=== PATIENT | male | born 1940 | race Caucasian/White ===

== ENCOUNTER 2017-01-01 07:55 | Day surgery (SDC) | payer MEDICARE, OTHER ==
--- NOTE | ~2017-01-01 | EGD ---
EGD REPORT [facility] [address] [place] [address] NAME: JL ABBOTT : 44 STATUS : REG [facility]#: [id number] AGE: 76 ADM/REG DATE : 01/01/17 MR#: [id number] REPORT SERV DATE: 01/01/17 DICTATED BY: JL SEPULVEDA DATE: 01/01/17 REPORT STATUS : Draft [facility] DATE: 01/01/17 [facility] Center Patient Name: Jl Abbott Date of : 1940 Attending MD: JL SEPULVEDA MD Procedure Date No Time: 01/01/2017 Procedure: Colonoscopy Indications: Screening for colorectal malignant neoplasm Referring MD: GARTH COOPER Medicines: Monitored Anesthesia Care Complications: No immediate complications. Procedure: Pre-Anesthesia Assessment: - ASA Grade Assessment: III - A patient with severe systemic disease. After I obtained informed consent, the scope was passed under direct vision. Throughout the procedure, the patient's blood pressure, pulse, and oxygen saturations were monitored continuously. The CF [id number] was introduced through the anus and advanced to the cecum, identified by appendiceal orifice and ileocecal valve. The colonoscopy was performed without difficulty. The patient tolerated the procedure well. The quality of the bowel preparation was adequate. Findings: The digital rectal exam was normal. Pertinent negatives include no palpable rectal lesions. A few diverticula were found in the sigmoid colon. Two sessile polyps were found in the cecum. The polyps were 4 to 6 mm in size. These polyps were removed with a cold biopsy forceps. Resection and retrieval were complete. A sessile polyp was found in the descending colon. The polyp was 7 mm in size. The polyp was removed with a cold snare. Resection and retrieval were complete. Hemorrhoids were found during retroflexion and were mild. Impression: - Diverticulosis in the sigmoid colon. - Two 4 to 6 mm polyps in the cecum. Resected and retrieved. - One 7 mm polyp in the descending colon. Resected and retrieved. - Hemorrhoids. Recommendation: - Patient has a contact number available for emergencies. The signs and symptoms of potential delayed EGD REPORT [address] [place]. [address] NAME: JL ABBOTT CASSIDY : 44 STATUS : REG [facility] PAT#: [id number] AGE: 76 ADM/REG DATE : 01/01/17 MR#: [id number] REPORT SERV DATE: 01/01/17 DICTATED BY: JL SEPULVEDA DATE: 01/01/17 REPORT STATUS : Draft TRANSCRIBED BY: [employer] DATE: 01/01/17 complications were discussed with the patient. Return to normal activities tomorrow. Written discharge instructions were provided to the patient. - Regular diet. - Continue present medications. - Await pathology results. - Repeat colonoscopy for surveillance based on pathology results. - Return to GI clinic PRN. Procedure Code(s): --- Professional --- 48381, Colonoscopy, flexible, proximal to splenic flexure; with removal of tumor(s), polyp(s), or other lesion(s) by snare technique 82326, 59, Colonoscopy, flexible, proximal to splenic flexure; with biopsy, single or multiple Diagnosis Code(s): --- Professional --- K64.9, Unspecified hemorrhoids K57.30, Diverticulosis of large intestine without perforation or abscess without bleeding D12.4, Benign neoplasm of descending colon D12.0, Benign neoplasm of cecum Z12.11, Encounter for screening for malignant neoplasm of colon CPT copyright 2013 [employer]. All rights reserved. The codes documented in this report are preliminary and upon filter bed placer review may be revised to meet current compliance requirements. JL SEPULVEDA MD 01/01/2017 10:24 AM This report has been signed electronically. Number of Addenda: 0 Note Initiated On: 01/01/2017 9:38 AM Scope Withdrawal Time 0 hours 14 minutes 15 seconds [address] [place] [address]
--- NOTE | ~2017-01-01 | EGD ---
EGD REPORT [facility] [address] [address] NAME: JL ABBOTT : 44 STATUS : REG [facility]#: [id number] AGE: 76 ADM/REG DATE : 01/01/17 MR#: [id number] REPORT SERV DATE: 01/01/17 DICTATED BY: JL SEPULVEDA DATE: 01/01/17 REPORT STATUS : Draft [facility]: [facility] DATE: 01/01/17 Endoscopy Center Patient Name: Jl Abbott Date of : 1940 Attending MD: JL SEPULVEDA MD Procedure Date No Time: 01/01/2017 Procedure: Upper GI endoscopy Indications: Epigastric abdominal pain Referring MD: GARTH COOPER Medicines: Monitored Anesthesia Care Complications: No immediate complications. Procedure: Pre-Anesthesia Assessment: - ASA Grade Assessment: III - A patient with severe systemic disease. After obtaining informed consent, the endoscope was passed under direct vision. Throughout the procedure, the patient's blood pressure, pulse, and oxygen saturations were monitored continuously. The GIF [id number] was introduced through the mouth, and advanced to the second part of duodenum. The upper GI endoscopy was accomplished without difficulty. The patient tolerated the procedure well. Findings: The examined esophagus was normal. Patchy mildly erythematous mucosa without bleeding was found in the gastric antrum. Biopsies were taken with a cold forceps for histology. The cardia and gastric fundus were normal on retroflexion. Few non-bleeding superficial duodenal ulcers with no stigmata of bleeding were found in the duodenal bulb and in the second part of the duodenum. The largest lesion was 10 mm in largest dimension. Biopsies were taken with a cold forceps for histology. Impression: - Normal esophagus. - Erythematous mucosa in the antrum. Biopsied. - Multiple duodenal ulcers with clean base. Biopsied. Recommendation: - Patient has a contact number available for emergencies. The signs and symptoms of potential delayed complications were discussed with the patient. Return to normal activities tomorrow. Written discharge instructions were provided to the patient. - Regular diet. - Continue present medications. - Use Protonix (pantoprazole) 40 mg PO daily. EGD REPORT [address] [address] NAME: JL ABBOTT CASSIDY : 44 STATUS : REG [facility] PAT#: [id number] AGE: 76 ADM/REG DATE : 01/01/17 MR#: [id number] REPORT SERV DATE: 01/01/17 DICTATED BY: JL SEPULVEDA DATE: 01/01/17 REPORT STATUS : Draft TRANSCRIBED BY: [employer] DATE: 01/01/17 Procedure Code(s): --- Professional --- 32868, Esophagogastroduodenoscopy, flexible, transoral; with biopsy, single or multiple Diagnosis Code(s): --- Professional --- K31.9, Disease of stomach and duodenum, unspecified K26.9, Duodenal ulcer, unspecified as acute or chronic, without hemorrhage or perforation R10.13, Epigastric pain CPT copyright 2013 [employer]. All rights reserved. The codes documented in this report are preliminary and upon asphalt paving supervisor review may be revised to meet current compliance requirements. JL SEPULVEDA MD 01/01/2017 10:02 AM This report has been signed electronically. Number of Addenda: 0 Note Initiated On: 01/01/2017 9:43 AM Scope Withdrawal Time 0 hours 0 minutes 0 seconds [address] [place] [address]
[~2017-01-01 07:55] MED LIST: AMARYL1 MG PO; ASA5GR PO; BUSPAR30 MG PO; COZ50 PO; FLONASE NAS; HYTRIN10 MG PO; KLONO1 PO; MONOPRIL HCT PO; PAXIL40 MG PO; PRAVAC PO; REOCYTE PLUS PO; SYMBICORT 80/4.1 INH INH; TRAZ50 PO
== END 2017-01-01 23:59 | disposition home or self-care (01) ==
LOC: DMU 07:55
PROVIDERS: Internal Medicine Gastroenterology
PROC: 0DB68ZX Excision of Stomach, Via Natural or Artificial Opening Endoscopic, Diagnostic (ICD-10-PCS; 2017-01-01)
PROC: 0DBH8ZX Excision of Cecum, Via Natural or Artificial Opening Endoscopic, Diagnostic (ICD-10-PCS; principal; 2017-01-01 09:30)
PROC: 0DBM8ZX Excision of Descending Colon, Via Natural or Artificial Opening Endoscopic, Diagnostic (ICD-10-PCS; 2017-01-01 09:30)
PROC: 0DB98ZX Excision of Duodenum, Via Natural or Artificial Opening Endoscopic, Diagnostic (ICD-10-PCS; 2017-01-01 09:30)
DX: Z12.11 Encounter for screening for malignant neoplasm of colon (principal); D12.0 Benign neoplasm of cecum; D12.4 Benign neoplasm of descending colon; K26.3 Acute duodenal ulcer without hemorrhage or perforation; K29.80 Duodenitis without bleeding; K57.30 Diverticulosis of large intestine without perforation or abscess without bleeding; K64.9 Unspecified hemorrhoids; I10 Essential (primary) hypertension; K21.9 Gastro-esophageal reflux disease without esophagitis; E11.9 Type 2 diabetes mellitus without complications; Z88.0 Allergy status to penicillin; Z88.8 Allergy status to other drugs, medicaments and biological substances; Z79.82 Long term (current) use of aspirin; Z79.899 Other long term (current) drug therapy; Z98.41 Cataract extraction status, right eye; Z98.42 Cataract extraction status, left eye; Z96.653 Presence of artificial knee joint, bilateral; Z98.890 Other specified postprocedural states
CPT/HCPCS: 82962; 88305